=== PATIENT | female | born 1985 | race Caucasian/White ===

== ENCOUNTER → 2017-01-16 | Outpatient (CLI) | payer MEDICAID | LOC: MW.CHOBGYN 11:06 | PROVIDERS: ATTEND Advanced Practice Midwife | DX: Z34.90 Encounter for supervision of normal pregnancy, unspecified, unspecified trimester (principal) | CPT/HCPCS: 36415; 82950; 85027; 86850; 87491; 87591 ==

== ENCOUNTER → 2017-01-22 | Outpatient (CLI) | payer MEDICAID | LOC: MW.CHOBGYN 10:00 | PROVIDERS: ATTEND Advanced Practice Midwife | DX: O99.810 Abnormal glucose complicating pregnancy (principal) | CPT/HCPCS: 36415; 82951 ==

== ENCOUNTER 2017-03-12 18:49 | Inpatient (IN) | payer MEDICAID ==
[2017-03-12] MEDS ORDERED: Lidocaine 1% 50 ML MDV INJECT PRN (20:39)
[2017-03-12] MEDS ORDERED: Water For Irrigation,Sterile 1,000 ML Container IRR PRN (20:39)
[2017-03-12] MEDS ORDERED: Misoprostol 25 MCG (1/4 of 100 MCG) Tab PO PRN (20:39)
[2017-03-12] MEDS ORDERED: Methylergonovine 0.2 MG/1 ML Amp IM PRN (20:39)
[2017-03-12] MEDS ORDERED: Sodium Chloride 0.9% 2.5 ML Syringe FLUSH PRN (20:39)
[2017-03-12] MEDS ORDERED: Nalbuphine 10 MG/1 ML Vial IVPUSH PRN (20:39)
[2017-03-12] MEDS ORDERED: Carboprost Tromethamine 250 MCG/1 ML Amp IM PRN (20:39)
[2017-03-12] MEDS ORDERED: Sodium Chloride 0.9% 10 ML Syringe FLUSH PRN (20:39)
[2017-03-12] MEDS ORDERED: Misoprostol 200 MCG Tab PO PRN (20:39)
[2017-03-12] MEDS ORDERED: Terbutaline 1 MG/ML SDV SUBCUT PRN (20:39)
[2017-03-12] MEDS ORDERED: Oxytocin/Lactated Ringers 30 UNIT/500 ML BAG IV SCH ×2 (20:45)
[2017-03-12] MEDS ORDERED: Misoprostol 25 MCG (1/4 of 100 MCG) Tab PO SCH (20:45)
[2017-03-12] MEDS ORDERED: Misoprostol 25 MCG (1/4 of 100 MCG) Tab VAG SCH (20:45)
[2017-03-12] MEDS: Lactated Ringers 1,000 ML IV SCH (21:06)
[2017-03-13] MEDS: Misoprostol 25 MCG (1/4 of 100 MCG) Tab VAG PRN ×2 (01:00→06:09)
[2017-03-13] MEDS: Butorphanol 1 MG/ML SDV IVPUSH PRN ×3 (03:03→12:53)
[2017-03-13] MEDS: Lactated Ringers 1,000 ML IV SCH ×2 (12:06→16:57)
--- NOTE | 2017-03-13 12:15 | PCM.PREANE ---
Preanesthetic Assessment - Anesthesia/Transfusion/Family Hx Anesthesia History: No Prior Anesthesia Family History of Anesthesia Reaction: No Transfusion History: No Prior Transfusion(s) - Review of Systems General: No Symptoms Pulmonary: No Symptoms Cardiovascular: No Symptoms Gastrointestinal: No symptoms Neurological: No Symptoms Other: Reports: Diabetes (Gestational) - Physical Assessment NPO Status Date: 03/13/17 NPO Status Time: 15:48 (clear liquids) Height: 1.57 m Weight: 79.832 kg ASA Class: 3 Mental Status: Alert & Oriented x3 Airway Class: Mallampati = 3 Dentition: Reports: Normal Dentition Thyro-Mental Finger Breadths: 3 Mouth Opening Finger Breadths: 3 ROM/Head Extension: Full Lungs: Clear to auscultation, Normal respiratory effort Cardiovascular: Regular Rate, Regular Rhythm - Lab Values: Laboratory Last Values WBC 10.05 K/uL (4.0-11.0) 03/12/17 21:00 RBC 4.00 M/uL (4.30-5.90) L 03/12/17 21:00 Hgb 9.9 g/dL (12.0-16.0) L 03/12/17 21:00 Hct 31.7 % (36.0-46.0) L 03/12/17 21:00 MCV 79.3 fL (80.0-98.0) L 03/12/17 21:00 MCH 24.8 pg (27.0-32.0) L 03/12/17 21:00 MCHC 31.2 g/dL (31.0-37.0) 03/12/17 21:00 RDW Std Deviation 47.5 fl (28.0-62.0) 03/12/17 21:00 RDW Coeff of Mildred 16 % (11.0-15.0) H 03/12/17 21:00 Plt Count 283 K/uL (150-400) 03/12/17 21:00 MPV 11.80 fL (7.40-12.00) 03/12/17 21:00 Nucleated RBC % 0.0 /100WBC 03/12/17 21:00 Nucleated RBCs # 0 K/uL 03/12/17 21:00 POC Glucose 120 mg/dL (60-110) H 03/13/17 07:54 Blood Type O POSITIVE 03/12/17 21:00 Antibody Screen NEGATIVE 03/12/17 21:00 - Allergies Allergies/Adverse Reactions: Allergies Allergy/AdvReac Type Severity Reaction Status Date / Time No Known Allergies Allergy Verified 07/14/16 09:11 - Blood Blood Available: Yes Product(s) Available: PRBC - Acknowledgements Anesthesia Type Planned: Epidural Pt an Appropriate Candidate for the Planned Anesthesia: Yes Alternatives and Risks of Anesthesia Discussed w Pt/Guardian: Yes Pt/Guardian Understands and Agrees with Anesthesia Plan: Yes PreAnesthesia Questionnaire HEENT History: Reports: None Cardiovascular History: Reports: None Respiratory History: Reports: None Gastrointestinal History: Reports: GERD Genitourinary History: Reports: None SUBSTANCE ABUSE COUNSELOR History: Reports: Musculoskeletal History: Reports: None Neurological History: Reports: None Psychiatric History: Reports: None Endocrine/Metabolic History: Reports: Diabetes, Gestational Hematologic History: Reports: None Immunologic History: Reports: None Oncologic (Cancer) History: Reports: None Dermatologic History: Reports: None - Infectious Disease History Infectious Disease History: Reports: None - Past Surgical History Head Surgeries/Procedures: Reports: None HEENT Surgical History: Reports: Adenoidectomy, Tonsillectomy Other HEENT Surgeries/Procedures: Tonsillectomy and Adenoidectomy 05/23/16 Cardiovascular Surgical History: Reports: None Respiratory Surgical History: Reports: None GI Surgical History: Reports: None Female Surgical History: Reports: None Endocrine Surgical History: Reports: None Neurological Surgical History: Reports: None Musculoskeletal Surgical History: Reports: None Dermatological Surgical History: Reports: None - SUBSTANCE USE Smoking Status *Q: Never Smoker Second Hand Smoke Exposure: No Recreational Drug Use History: No - HOME MEDS Home Medications: Home Meds Cetirizine [ZyrTEC] 10 mg PO DAILY 07/14/16 [History] Excedrin Migraine 07/14/16 [History] Omeprazole 20 mg PO DAILY 07/14/16 [History] diphenhydrAMINE HCl [Benadryl] 25 mg PO 07/14/16 [History] - CURRENT (IN HOUSE) MEDS Current Meds: Current Medications Butorphanol Tartrate (Stadol) 1 mg IVPUSH ASDIRECTED PRN PRN Reason: Pain Last Admin: 03/13/17 06:12 Dose: 1 mg Carboprost Tromethamine (Hemabate Ds) 250 mcg IM ASDIRECTED PRN PRN Reason: Post Hemorrhage Lactated Ringer's (Ringers, Lactated) 1,000 mls @ 150 mls/hr IV ASDIRECTED ESTEFANIA Last Admin: 03/13/17 12:06 Dose: 150 mls/hr Oxytocin/Lactated Ringer's (Pitocin In Lr 30 Units/500 Ml) 30 unit in 500 mls @ 2 mls/hr IV TITRATE ESTEFANIA; 2 MUNITS/MIN PRN Reason: Protocol Lidocaine HCl (Xylocaine 1%) 50 ml INJECT .ONCE PRN PRN Reason: Laceration repair Methylergonovine Maleate (Methergine) 0.2 mg IM ASDIRECTED PRN PRN Reason: Post Hemorrhage Misoprostol (Cytotec) 25 mcg VAG .ONCE ESTEFANIA Last Admin: 03/12/17 21:12 Dose: 25 mcg Misoprostol (Cytotec) 25 mcg VAG Q4H PRN PRN Reason: Cervical Ripening Stop: 03/14/17 00:40 Last Admin: 03/13/17 06:09 Dose: 25 mcg Misoprostol (Cytotec) 200 mcg PO .ONCE PRN PRN Reason: Post Hemorrhage Misoprostol (Cytotec) 25 mcg PO .ONCE ESTEFANIA Last Admin: 03/12/17 21:12 Dose: 25 mcg Misoprostol (Cytotec) 25 mcg PO Q4H PRN PRN Reason: Cervical Ripening Stop: 03/14/17 00:40 Last Admin: 03/13/17 01:00 Dose: 25 mcg Nalbuphine HCl (Nubain) 10 mg IVPUSH ASDIRECTED PRN PRN Reason: Pain (severe 7-10) Stop: 03/14/17 20:40 Sodium Chloride (Saline Flush) 10 ml FLUSH ASDIRECTED PRN PRN Reason: Keep Vein Open Sodium Chloride (Saline Flush) 2.5 ml FLUSH ASDIRECTED PRN PRN Reason: Keep Vein Open Sterile Water (Sterile Water For Irrigation) 1,000 ml IRR ASDIRECTED PRN PRN Reason: delivery Terbutaline Sulfate (Brethine) 0.25 mg SUBCUT ASDIRECTED PRN PRN Reason: Tacysystole Discontinued Medications Oxytocin/Lactated Ringer's (Pitocin In Lr 30 Units/500 Ml) 30 unit in 500 mls @ 999 mls/hr IV ASDIRECTED ESTEFANIA PRN Reason: 999 MUNITS/MIN Stop: 03/12/17 21:16 - Free Text/Narrative Note: Labor Analgesia/Epidural Procedure start date: 03-13-17 time: 1500 Attending provider aware Chart reviewed Permit signed Labs reviewed VS/ FHR reviewed Pt identified/ID band Pt assessed Risks/Benefits discussed and accepted Monitors in place (BP, HR, SPO2) Patient, Site, Procedure Verification, Pause. Pain "10/10" Fluid bolus infused (fluid type and amount): 1000 ml LR Position: Sitting @ 1507 Prep: Betadine X 3 Sterile Drape Intradermal Wheal: 3 ml 1% Lidocaine Regional placement level: L4-5 Needle: 17 g Tuohy Approach: Midline Technique: KANDIS glass syringe w 3 ml Sterile water KANDIS needle depth: 6 cm Paresthesia: None Fluid Obtained: None Catheter insertion time: 1514 Catheter depth at skin: 20 cm Test Dose Time: 1515 RX: 3 ml 1.5% lidocaine with 1:200,000 epi Response: Negative Loading dose Time: 9080-5411 RX: 100 mcg fentanyl followed by 10 ml 0.2% ropivacaine in 2 ml increments over 11 minutes Pt position: semi fowlers with JACKIE Continuous infusion Start Time: 1535 RX: 100 ml 0.2% ropivacaine with 200 mcg fentanyl [2mcg/ml] Continuous infusion rate: 8 ml/hr REHAB CONSULTANT bolus option: 5 ml every 15 min Pt response Post procedure pain level: "0/10" VS and FHR monitored in unit post placement (See OB traceview for documentation. ) Procedure end date: 03/13/17 time: 1601
[2017-03-13] MEDS ORDERED: Oxytocin/Lactated Ringers 30 UNIT/500 ML BAG IV SCH (12:45)
[2017-03-13] MEDS: Sodium Chloride 0.9% 1,000 ML SCH ×2 (14:37→21:27)
[2017-03-13] MEDS ORDERED: fentaNYL 100 MCG/2 ML SDV ONE (14:56)
[2017-03-13] MEDS ORDERED: Ropivacaine 0.2% 2 MG/ML 20 ML SDV ONE (14:57)
[2017-03-13] MEDS ORDERED: Sodium Chloride 0.9% 500 ML SCH (17:15)
[2017-03-13] MEDS ORDERED: ceFAZolin 2 GM in Premix Bag 1 BAG IV ONE (23:43)
[2017-03-13] MEDS ORDERED: Acetaminophen 500 MG Tab PO ONE (23:46)
--- NOTE | 2017-03-14 01:10 | PCM.SN ---
- Free Text/Narrative Note: Called to replace epidural infusion bag. Pt states contractions are not painful but she is having increased pressure due to descent of fetus. Has used LEATHER STITCHER bolus button for back pain and it has been effective. 100 ml 0.2% ropivacaine with 2mcg/ml fentanyl replaced and rate continued as before at 8 ml/ hr with 5 ml every 15 min LEATHER STITCHER bolus available.
[2017-03-14] MEDS ORDERED: Ibuprofen 800 MG Tab PO PRN (04:58)
[2017-03-14] MEDS ORDERED: Docusate Sodium 100 MG Cap PO PRN (04:58)
[2017-03-14] MEDS ORDERED: Bisacodyl 10 MG Supp RECTAL PRN (04:58)
[2017-03-14] MEDS ORDERED: Benzocaine/Menthol 20%-0.5% Spray 78 GM Cannister TOP PRN (04:58)
[2017-03-14] MEDS ORDERED: oxyCODONE 5 MG Tab PO PRN (04:58)
[2017-03-14] MEDS ORDERED: Witch Hazel Medicated Pads 40/Jar TOP PRN (04:58)
[2017-03-14] MEDS ORDERED: Lanolin 100% Cream 7 GM Tube TOP PRN (04:58)
[2017-03-14] MEDS ORDERED: Acetaminophen 500 MG Tab PO PRN (04:58)
--- NOTE | 2017-03-14 06:40 | OR ---
SURGEON: Ginger Clark DATE OF PROCEDURE: 03/14/2017 PRE-DELIVERY HISTORY: This is a 31-year-old, G1, P0, who presented to Labor and Delivery on March 12 for induction of labor at 39 weeks and 5 days for A2 diabetes in . The patient was on glyburide during for diabetes. Blood sugars were well controlled. Otherwise, the patient has no other complications other than obesity. The patient was started on vaginal misoprostol after NST was significant for category 1 tracing and no regular contractions. The patient did receive a total of three doses of misoprostol, eventually broke her water, and was tatiana regularly. The patient was eventually started on IV Pitocin. The patient eventually did receive an epidural for analgesia during labor. On exam by physician, IUPC and scalp electrode were placed secondary to difficulty keeping with them otherwise. Secondary to heart rate tracing anywhere from category 1 to category 2, but mostly category 2 concerns of Nursing staff with occasional variable decelerations and early decelerations, Pitocin was turned off multiple times, and did not get above 8 milliunits per minute. The IUPC eventually became nonfunctional. The patient did receive a total of three amnio infusions for variable decelerations. Secondary to having taking a longer period of time to put the patient into active labor because Pitocin was turned off several times, the patient's rupture of membranes was noted to be prolonged. The patient was started on IV Ancef for GBS protocol at approximately 20 hours of rupture. The patient eventually felt tremendous rectal pressure. The patient was finally examined by Nursing staff and found to be completely dilated and in +3 station. The patient started maternal expulsive efforts. PREOPERATIVE DIAGNOSES: 1. Intrauterine at 40 weeks. 2. Group B Streptococcus negative. 3. Induction of labor for A2 diabetes mellitus. 4. Prolonged rupture of membranes. POSTOPERATIVE DIAGNOSES: 1. Intrauterine at 40 weeks. 2. Delivery. 3. Second-degree vaginal laceration. PROCEDURES PERFORMED: 1. Spontaneous-assisted vaginal delivery. 2. Repair of second-degree vaginal laceration. ANESTHESIA TYPE: Epidural and local. ESTIMATED BLOOD LOSS: Approximately 250 mL. FINDINGS: Viable male infant in vertex presentation with Apgars of 7 and 8 at one and five minutes respectively, and weight of 3120 g. Normal intact placenta with 3- vessel cord. Second-degree vaginal laceration. DISPOSITION: Mom and tolerated the procedure well. COMPLICATIONS: None known. DESCRIPTION OF PROCEDURE: This female under epidural anesthesia delivered a viable male infant with Apgars of 7 and 8 at one and five minutes respectively and weight of 3120 g. Delivery was via spontaneous vaginal delivery with infant in vertex presentation. Upon delivery of infant in vertex, the neck was checked. There was no nuchal to be reduced. With gentle downward traction, the anterior shoulder was delivered, followed by the body. The infant was bulb suctioned at delivery. Cord was doubly clamped and cut. The went over to the waiting baby nurse and supervisor core shop, Dr. Amaro. After delivery of the , IV Pitocin was given as an uterotonic to prevent excessive maternal blood loss and to help expel the placenta, therefore, actively managing the third stage of labor. With signs of placental separation, the fundal massage was given and traction on the umbilical cord. There was no further descent of the cord. So, a manual exam was completed, and it was noted that the uterus was contracted down around the placenta. The lower portion of the placenta was extruding through the cervical opening. The placenta was cleaved off the uterus slowly, but carefully the placenta was removed in one piece. The did appear intact on further inspection. After delivery of infant and placenta, the vagina, perineum, and rectum were explored. The patient had a second-degree vaginal laceration that was repaired with 3-0 Vicryl suture in the usual fashion. Of note, the laceration did extend out to the left labia majora and was reapproximated. After repair, the lower uterine segment of vagina was cleared of all clots and debris. The patient was cleansed, pads were changed, and the bed was returned to functioning status. The patient and tolerated the procedure well. COUNT RESULTS: Sponge, lap, needle, and instrument counts were correct. NEWTYOL / MODL /[id number] KATERINA
[2017-03-14] MEDS ORDERED: ceFAZolin 1 GM in Premix Bag 1 BAG IV SCH (08:00)
--- NOTE | 2017-03-14 11:08 | PCM48HPAN ---
Post Anesthesia Note - EVALUATION WITHIN 48HRS OF ANESTHETIC Vital Signs in Normal Range: Yes Patient Participated in Evaluation: Yes Respiratory Function Stable: Yes Airway Patent: Yes Cardiovascular Function Stable: Yes Hydration Status Stable: Yes Pain Control Satisfactory: Yes Nausea and Vomiting Control Satisfactory: Yes Mental Status Recovered: Yes
[2017-03-15 09:06] VITALS: BP 127/80
--- NOTE | 2017-03-15 11:02 | PCM.PNPP ---
- General Info Date of Service: 03/15/17 Functional Status: Reports: pain controlled, tolerating diet, ambulating, urinating - Review of Systems General: Denies: Fever, Weakness Pulmonary: Denies: shortness of breath Cardiovascular: Denies: Chest Pain, Palpitations, Lightheadedness Gastrointestinal: Denies: Abdominal pain, Nausea, Vomiting Genitourinary: Denies: flank pain Neurological: Reports: No Symptoms Psychiatric: Reports: no symptoms - General Info Date of Service: 03/15/17 - Patient Data Vital Signs - most recent: Last Vital Signs Temp 37.3 C 03/15/17 08:15 Pulse 95 03/15/17 08:15 Resp 20 03/15/17 08:15 BP 127/80 03/15/17 08:15 Pulse Ox 99 03/15/17 08:15 Weight - most recent: 79.832 kg Lab Results - last 24 hrs: Laboratory Results - last 24 hr 03/15/17 03/15/17 Range/Units 05:02 05:02 Hgb 8.5 L (12.0-16.0) g/dL Hct 27.1 L (36.0-46.0) % Fasting Glucose 86 (60-110) mg/dL Med Orders - Current: Current Medications Acetaminophen (Tylenol Extra Strength) 500 mg PO Q4H PRN PRN Reason: Pain Last Admin: 03/15/17 08:16 Dose: 500 mg Benzocaine/Menthol (Dermoplast Pain Relief 20%-0.5% [place]) 78 gm TOP ASDIRECTED PRN PRN Reason: Perineal Comfort Measure Bisacodyl (Dulcolax) 10 mg RECTAL .ONCE PRN PRN Reason: Constipation Butorphanol Tartrate (Stadol) 1 mg IVPUSH ASDIRECTED PRN PRN Reason: Pain Last Admin: 03/13/17 12:53 Dose: 1 mg Carboprost Tromethamine (Hemabate Ds) 250 mcg IM ASDIRECTED PRN PRN Reason: Post Hemorrhage Docusate Sodium (Colace) 100 mg PO BID PRN PRN Reason: Constipation Emollient Ointment (Lansinoh Hpa) 0 gm TOP ASDIRECTED PRN PRN Reason: Sore Nipples Lactated Ringer's (Ringers, Lactated) 1,000 mls @ 150 mls/hr IV ASDIRECTED ESTEFANIA Last Admin: 03/13/17 16:57 Dose: 150 mls/hr Oxytocin/Lactated Ringer's (Pitocin In Lr 30 Units/500 Ml) 30 unit in 500 mls @ 2 mls/hr IV TITRATE ESTEFANIA; 2 MUNITS/MIN PRN Reason: Protocol Last Titration: 03/13/17 20:57 Dose: 6 munits/min, 6 mls/hr Sodium Chloride (Normal Saline) 1,000 mls @ 999 mls/hr .XX ASDIRECTED [facility] Last Admin: 03/13/17 21:27 Dose: 500 mls/hr Sodium Chloride (Normal Saline) 500 mls @ 999 mls/hr .XX ASDIRECTED ESTEFANIA Cefazolin Sodium/Dextrose 1 gm (/ Premix) 50 mls @ 100 mls/hr IV Q8H ESTEFANIA Ibuprofen (Motrin) 800 mg PO Q6H PRN PRN Reason: Pain Lidocaine HCl (Xylocaine 1%) 50 ml INJECT .ONCE PRN PRN Reason: Laceration repair Last Admin: 03/14/17 04:32 Dose: 50 ml Methylergonovine Maleate (Methergine) 0.2 mg IM ASDIRECTED PRN PRN Reason: Post Hemorrhage Misoprostol (Cytotec) 25 mcg VAG .ONCE [facility] Last Admin: 03/12/17 21:12 Dose: 25 mcg Misoprostol (Cytotec) 200 mcg PO .ONCE PRN PRN Reason: Post Hemorrhage Misoprostol (Cytotec) 25 mcg PO .ONCE [facility] Last Admin: 03/12/17 21:12 Dose: 25 mcg Oxycodone HCl (Oxycodone) 5 mg PO Q2H PRN PRN Reason: Pain Sodium Chloride (Saline Flush) 10 ml FLUSH ASDIRECTED PRN PRN Reason: Keep Vein Open Sodium Chloride (Saline Flush) 2.5 ml FLUSH ASDIRECTED PRN PRN Reason: Keep Vein Open Sterile Water (Sterile Water For Irrigation) 1,000 ml IRR ASDIRECTED PRN PRN Reason: delivery Last Admin: 03/14/17 04:27 Dose: 1,000 ml Terbutaline Sulfate (Brethine) 0.25 mg SUBCUT ASDIRECTED PRN PRN Reason: Tacysystole Witch Denise (Tucks) 1 pad TOP ASDIRECTED PRN PRN Reason: comfort care Discontinued Medications Acetaminophen (Tylenol Extra Strength) 1,000 mg PO ONETIME ONE Stop: 03/13/17 23:47 Last Admin: 03/14/17 00:01 Dose: 1,000 mg Fentanyl (Sublimaze) Confirm Administered Dose 100 mcg .ROUTE .STK-MED ONE Stop: 03/13/17 14:57 Oxytocin/Lactated Ringer's (Pitocin In Lr 30 Units/500 Ml) 30 unit in 500 mls @ 2 mls/hr IV TITRATE ESTEFANIA; 2 MUNITS/MIN PRN Reason: Protocol Oxytocin/Lactated Ringer's (Pitocin In Lr 30 Units/500 Ml) 30 unit in 500 mls @ 999 mls/hr IV ASDIRECTED ESTEFANIA PRN Reason: 999 MUNITS/MIN Stop: 03/12/17 21:16 Ropivacaine/Fentanyl/NS (Fentanyl 2 Mcg-Ropiv 0.2%-Ns) Confirm Administered Dose 100 mls @ as directed .ROUTE .STK-MED ONE Stop: 03/13/17 14:58 Cefazolin Sodium/Dextrose 2 gm (/ Premix) 50 mls @ 100 mls/hr IV ONETIME ONE Stop: 03/14/17 00:12 Last Admin: 03/13/17 23:58 Dose: 100 mls/hr Ropivacaine/Fentanyl/NS (Fentanyl 2 Mcg-Ropiv 0.2%-Ns) Confirm Administered Dose 100 mls @ as directed .ROUTE .STK-MED ONE Stop: 03/14/17 00:50 Misoprostol (Cytotec) 25 mcg VAG Q4H PRN PRN Reason: Cervical Ripening Stop: 03/14/17 00:40 Last Admin: 03/13/17 06:09 Dose: 25 mcg Misoprostol (Cytotec) 25 mcg PO Q4H PRN PRN Reason: Cervical Ripening Stop: 03/14/17 00:40 Last Admin: 03/13/17 01:00 Dose: 25 mcg Nalbuphine HCl (Nubain) 10 mg IVPUSH ASDIRECTED PRN PRN Reason: Pain (severe 7-10) Stop: 03/14/17 20:40 Ropivacaine (Naropin 0.2%) Confirm Administered Dose 20 ml .ROUTE .STK-MED ONE Stop: 03/13/17 14:58 - Interaction Support Person: Significant Other - Recovery Exam Fundal Tone: Firm Fundal Level: 1 Fingerbreadths Above Umbilicus Fundal Placement: Midline Lochia Amount: Scant Lochia Color: Rubra/Red Bladder Status: Voiding Urinary Elimination: Voided - Exam General: alert, oriented Lungs: Normal respiratory effort Cardiovascular: Regular Rate, Regular Rhythm Abdomen: bowel sounds present, soft. No: CVA tenderness Extremities: no calf tenderness Skin: warm, dry, intact Psy/Mental Status: alert, normal affect - Problem List & Annotations (1) Vaginal delivery SNOMED Code(s): 042691592 Code(s): O80 - ENCOUNTER FOR FULL-TERM UNCOMPLICATED DELIVERY Status: Acute Current Visit: Yes - Problem List Review Problem List Initiated/Reviewed/Updated: Yes - My Orders Last 24 Hours: My Active Orders 03/15/17 11:00 Ready for Discharge [RC] PER UNIT ROUTINE - Assessment Assessment:: PPD 1 status post - Plan Plan:: Patient would like to go home today. Discharge instructions reviewed. Infection and bleeding warnings reviewed. Discharge to home, follow up 6weeks
== END 2017-03-15 13:40 | disposition home or self-care (01) | DRG 775 ==
LOC: MW.OBCHECK 18:49 → MW.OB 18:50 → MW.OBCHECK 20:40 → OBSVTOIN 03-14 04:17 → MW.OB 03-14 13:58
PROVIDERS: ADMIT Obstetrics & Gynecology; ATTEND Obstetrics & Gynecology
PROC: 10E0XZZ Delivery of Products of Conception, External Approach (ICD-10-PCS; principal; 2017-03-14)
PROC: 0KQM0ZZ Repair Perineum Muscle, Open Approach (ICD-10-PCS; 2017-03-14)
PROC: 3E0P7GC Introduction of Other Therapeutic Substance into Female Reproductive, Via Natural or Artificial Opening (ICD-10-PCS; 2017-03-14)
PROC: 10H07YZ Insertion of Other Device into Products of Conception, Via Natural or Artificial Opening (ICD-10-PCS; 2017-03-14)
PROC: 4A1H7CZ Monitoring of Products of Conception, Cardiac Rate, Via Natural or Artificial Opening (ICD-10-PCS; 2017-03-14)
DX: O24.425 Gestational diabetes mellitus in childbirth, controlled by oral hypoglycemic drugs (principal); O70.1 Second degree perineal laceration during delivery; O75.5 Delayed delivery after artificial rupture of membranes; Z3A.39 39 weeks gestation of pregnancy; Z37.0 Single live birth
CPT/HCPCS: 36415; 59025; 82947; 82962; 85014; 85018; 85027; 86850; 86900; 86901; A9270-GY; J0595; J0690; J2795; J3010; J7040; J7120

== ENCOUNTER 2019-07-05 15:04 | Emergency (ER) | payer BC, MEDICAID ==
[2019-07-05 15:19] VITALS: BP 121/68; PULSE 93
--- NOTE | 2019-07-05 15:42 | EDM.PDOC ---
ED HPI GENERAL MEDICAL PROBLEM - General Chief Complaint: Skin Complaint Stated Complaint: RASH LEFT SIDE, ACHES Time Seen by Provider: 07/05/19 15:32 Source of Information: Reports: Patient History Limitations: Reports: No Limitations - History of Present Illness INITIAL COMMENTS - FREE TEXT/NARRATIVE: HISTORY AND PHYSICAL: History of present illness: Patient is a 33-year-old female who presents to the ED today with concern of a painful and itchy rash on the right flank area 2 days. Patient states the rash started off with some blisters but has now spread pretty quickly. Patient states she has not taken anything for her symptoms. Patient denies any other symptoms or concerns at this time. Patient denies fever, chills, chest pain, shortness of breath, or cough. Denies headache, neck stiff ness, change in vision, syncope, or near syncope. Denies nausea, vomiting, abdominal pain, diarrhea, constipation, or dysuria. Has not noted any blood in urine or stool. Patient has been eating and drinking appropriately. Review of systems: As per history of present illness and below otherwise all systems reviewed and negative. Past medical history: As per history of present illness and as reviewed below otherwise noncontributory. Surgical history: As per history of present illness and as reviewed below otherwise noncontributory. Social history: See social history for further information Family history: As per history of present illness and as reviewed below otherwise noncontributory. Physical exam: General: Patient is alert, oriented, and in no acute distress. Patient sitting comfortably on exam table. HEENT: Atraumatic, normocephalic, pupils equal and reactive bilaterally, negative for conjunctival pallor or scleral icterus, mucous membranes moist, TMs normal bilaterally, throat clear, neck supple, nontender, trachea midline. No drooling or trismus noted. No meningeal signs. No hot potato voice noted. Lungs: Clear to auscultation, breath sounds equal bilaterally, chest nontender. Heart: S1S2, regular rate and rhythm without overt murmur Abdomen: Soft, nondistended, nontender. Negative for masses or hepatosplenomegaly. Negative for costovertebral tenderness. Pelvis: Stable nontender. Genitourinary: Deferred. Rectal: Deferred. Skin: There is a blister like stripe on the right side trunk of the body following the dermatome pattern. This rash does not cross the central body and only in a dermatome pattern. Extremities: Atraumatic, negative for cords or calf pain. Neurovascular unremarkable. Neuro: Awake, alert, oriented. Cranial nerves II through XII unremarkable. Cerebellum unremarkable. Motor and sensory unremarkable throughout. Exam nonfocal. Notes: Discussed the importance for follow-up with a primary care provider. Voices understanding and is agreeable to plan of care. Denies any further questions or concerns at this time. Diagnostics: None Therapeutics: None Prescription: Acyclovir, Medrol Dosepak (pain medication offered but patient declines) Impression: Shingles Plan: 1. Take medication as prescribed. You can alternate ibuprofen and Tylenol as directed for pain and discomfort. 2. Follow-up with her primary care provider as discussed. Return to the ED as needed and as discussed. Definitive disposition and diagnosis as appropriate pending reevaluation and review of above. right side Pain Score (Numeric/FACES): 8 - Related Data Allergies Allergy/AdvReac Type Severity Reaction Status Date / Time No Known Allergies Allergy Verified 07/05/19 15:15 Home Meds: Home Meds . 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: Musculoskeletal History: Reports: None Neurological History: Reports: None Psychiatric History: Reports: None Endocrine/Metabolic History: Reports: Diabetes, Gestational Hematologic History: Reports: None Immunologic History: Reports: None Oncologic (Cancer) History: Reports: None Dermatologic History: Reports: None - Infectious Disease History Infectious Disease History: Reports: None - Past Surgical History Head Surgeries/Procedures: Reports: None HEENT Surgical History: Reports: Adenoidectomy, Tonsillectomy Other HEENT Surgeries/Procedures: Tonsillectomy and Adenoidectomy 05/23/16 Cardiovascular Surgical History: Reports: None Respiratory Surgical History: Reports: None GI Surgical History: Reports: None Female Surgical History: Reports: None Endocrine Surgical History: Reports: None Neurological Surgical History: Reports: None Musculoskeletal Surgical History: Reports: None Dermatological Surgical History: Reports: None Social & Family History - Family History Family Medical History: Noncontributory - Tobacco Use Smoking Status *Q: Never Smoker - Caffeine Use Caffeine Use: Reports: Coffee - Recreational Drug Use Recreational Drug Use: No ED ROS GENERAL - Review of Systems Review Of Systems: ROS reveals no pertinent complaints other than HPI. ED EXAM, SKIN/RASH Exam: See Below (See dictation) Course - Vital Signs Last Recorded V/S: Last Vital Signs Temp 96.6 F 07/05/19 15:13 Pulse 93 07/05/19 15:13 Resp 18 07/05/19 15:13 BP 121/68 07/05/19 15:13 Pulse Ox 100 07/05/19 15:13 Departure - Departure Time of Disposition: 15:42 Disposition: Home, Self-Care 01 Clinical Impression: Shingles Qualifiers: Herpes zoster complications: without complications Qualified Code(s): B02.9 - Zoster without complications - Discharge Information Referrals: Gayle Bailey [employer] [Primary Care Provider] - Forms: ED Department Discharge Additional Instructions: The following information is given to patients seen in the emergency department who are being discharged to home. This information is to outline your options for follow-up care. We provide all patients seen in our emergency department with a follow-up referral. The need for follow-up, as well as the timing and circumstances, are variable depending upon the specifics of your emergency department visit. If you don't have a primary care physician on staff, we will provide you with a referral. We always advise you to contact your personal physician following an emergency department visit to inform them of the circumstance of the visit and for follow-up with them and/or the need for any referrals to a consulting specialist. The emergency department will also refer you to a specialist when appropriate. This referral assures that you have the opportunity for follow-up care with a specialist. All of these measure are taken in an effort to provide you with optimal care, which includes your follow-up. Under all circumstances we always encourage you to contact your private physician who remains a resource for coordinating your care. When calling for follow-up care, please make the office aware that this follow-up is from your recent emergency room visit. If for any reason you are refused follow-up, please contact the [facility] Emergency Department at and asked to speak to the emergency department charge nurse. [facility] [address] [place] [address] [facility] [address] [place] [id number] 1. Take medication as prescribed. You can alternate ibuprofen and Tylenol as directed for pain and discomfort. 2. Follow-up with her primary care provider as discussed. Return to the ED as needed and as discussed.
== END 2019-07-05 16:00 | disposition home or self-care (01) ==
LOC: MW.ED 15:04
DX: B02.9 Zoster without complications (principal)
CPT/HCPCS: 99282

== ENCOUNTER 2019-09-02 23:27 | Emergency (ER) | payer BC ==
--- NOTE | 2019-09-03 01:38 | EDM.PDOC ---
ED HPI GENERAL MEDICAL PROBLEM - General Chief Complaint: ENT Problem Stated Complaint: SORE THROAT Time Seen by Provider: 09/02/19 23:49 Source of Information: Reports: Patient History Limitations: Reports: No Limitations - History of Present Illness INITIAL COMMENTS - FREE TEXT/NARRATIVE: 34-year-old female who presents the emergency room chief complaint of sore throat and possible exudates on her tonsils. Patient states this is been going on for the past 4 days. Onset: Today, Gradual Duration: Day(s):, Getting Worse Severity: Mild Improves with: Reports: None Worsens with: Reports: None Associated Symptoms: Reports: No Other Symptoms throat Pain Score (Numeric/FACES): 5 - Related Data Allergies Allergy/AdvReac Type Severity Reaction Status Date / Time No Known Allergies Allergy Verified 09/02/19 23:52 Home Meds: Home Meds . 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: Musculoskeletal History: Reports: None Neurological History: Reports: None Psychiatric History: Reports: None Endocrine/Metabolic History: Reports: Diabetes, Gestational Hematologic History: Reports: None Immunologic History: Reports: None Oncologic (Cancer) History: Reports: None Dermatologic History: Reports: None - Infectious Disease History Infectious Disease History: Reports: None - Past Surgical History Head Surgeries/Procedures: Reports: None HEENT Surgical History: Reports: Adenoidectomy, Tonsillectomy Other HEENT Surgeries/Procedures: Tonsillectomy and Adenoidectomy 05/23/16 Cardiovascular Surgical History: Reports: None Respiratory Surgical History: Reports: None GI Surgical History: Reports: None Female Surgical History: Reports: None Endocrine Surgical History: Reports: None Neurological Surgical History: Reports: None Musculoskeletal Surgical History: Reports: None Dermatological Surgical History: Reports: None Social & Family History - Family History Family Medical History: Noncontributory - Tobacco Use Smoking Status *Q: Never Smoker - Caffeine Use Caffeine Use: Reports: Coffee - Recreational Drug Use Recreational Drug Use: No ED ROS ENT - Review of Systems Review Of Systems: See Below Constitutional: Reports: No Symptoms HEENT: Reports: Throat Pain Respiratory: Reports: No Symptoms Cardiovascular: Reports: No Symptoms Endocrine: Reports: No Symptoms GI/Abdominal: Reports: No Symptoms : Reports: No Symptoms Musculoskeletal: Reports: No Symptoms Skin: Reports: No Symptoms Neurological: Reports: No Symptoms Psychiatric: Reports: No Symptoms Hematologic/Lymphatic: Reports: No Symptoms Immunologic: Reports: No Symptoms ED EXAM, ENT - Physical Exam Exam: See Below Text/Narrative:: -34year-old female presents to the emergency room with sore throat. Exudates on his tonsils. Exam Limited By: No Limitations General Appearance: Alert, WD/WN, No Apparent Distress Eye Exam: Bilateral Eye: Abnormal EOM, Abnormal Pupil, Normal Fundi, Normal Inspection Ears: Normal External Exam, Normal Canal, Normal TMs Nose: Normal Inspection, Normal Mucousa Mouth/Throat: Normal Inspection, Normal Gums, Normal Oropharynx, Normal Teeth, Throat Pain Head: Atraumatic, Normocephalic Neck: Normal Inspection, Supple, Non-Tender Respiratory/Chest: No Respiratory Distress, Lungs Clear, Normal Breath Sounds, No Accessory Muscle Use Cardiovascular: Normal Peripheral Pulses, Regular Rate, Rhythm, No Edema, No JVD , No Murmur GI/Abdominal: Normal Bowel Sounds, Soft, Non-Tender (Female) Exam: Deferred Rectal (Female) Exam: Deferred Back: Normal Inspection, Full Range of Motion Neurological: Alert, Oriented, CN II-XII Intact Psychiatric: Normal Affect, Normal Mood Skin: Warm, Dry, Intact, Normal Color Course - Vital Signs Last Recorded V/S: Last Vital Signs Temp 98.1 F 09/02/19 23:40 Pulse 90 09/02/19 23:40 Resp 18 09/02/19 23:40 BP 117/74 09/02/19 23:40 Pulse Ox 97 09/02/19 23:40 - Orders/Labs/Meds Orders: Active Orders 24 hr Category Date Time Status CULTURE STREP A CONFIRMATION [RM] Stat Lab 09/03/19 00:21 Results STREP SCRN A RAPID W CULT CONF [RM] Stat Lab 09/03/19 00:21 Results Labs: Laboratory Tests 09/03/19 Range/Units 01:03 Monoscreen NEGATIVE (NEG) Departure - Departure Time of Disposition: 01:38 Disposition: Home, Self-Care 01 Condition: Good Clinical Impression: Viral syndrome - Discharge Information Instructions: Viral Illness, Adult Referrals: Gayle Bailey [employer] 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
[2019-09-03 02:16] VITALS: BP 125/88; PULSE 96
== END 2019-09-03 01:55 | disposition home or self-care (01) ==
LOC: MW.ED 23:27
DX: B34.9 Viral infection, unspecified (principal)
CPT/HCPCS: 36415; 86308; 87081; 87804; 87880-QW; 99283

== ENCOUNTER 2020-05-27 17:00 | Emergency (ER) | payer BC, OTHER ==
--- NOTE | 2020-05-27 17:31 | EDM.PDOCBH ---
ED HPI GENERAL MEDICAL PROBLEM - General Chief Complaint: Behavioral/Psych Stated Complaint: MENTAL HEALTH Time Seen by Provider: 05/27/20 17:20 Source of Information: Reports: Patient, EMS History Limitations: Reports: No Limitations - History of Present Illness INITIAL COMMENTS - FREE TEXT/NARRATIVE: HISTORY AND PHYSICAL: History of present illness: Patient is a 34-year-old female who presents to the emergency room with complaints of suicidal ideation. She states last evening she was thinking about taking her prescription medications "all at once" and mixing them with alcohol. She states her son was with her and decided against taking the meds/ETOH. She has been having this idea "bounce back and forth" between following through and "living for my son". She called a counselor whom she confided in, they encouraged her to come to the emergency room for further evaluation. Upon arrival the patient states she continues to have thoughts of harming herself and would like psychiatric help. No previous history of admission for the Mai ideation/bipolar depression. States she is not taking any excess prescription medications, [id number] medications, street drugs or alcohol. Review of systems: As per history of present illness and below otherwise all systems reviewed and negative. Past medical history: As per history of present illness and as reviewed below otherwise noncontributory. Surgical history: As per history of present illness and as reviewed below otherwise noncontributory. Social history: See social history for further information Family history: As per history of present illness and as reviewed below otherwise noncontributory. Physical exam: General: Well developed and well nourished 34 year old female. Alert and orientated x 3. Flat affect, avoids eye contact, nontoxic in appearance and in no acute distress. Vital signs are stable and have been reviewed by me. Nursing notes were reviewed. HEENT: Atraumatic, normocephalic, pupils equal and reactive bilaterally, negative for conjunctival pallor or scleral icterus, mucous membranes moist, trachea midline. No drooling or trismus noted. No meningeal signs. No hot potato voice noted. Lungs: Clear to auscultation, breath sounds equal bilaterally. Normal work of breathing, no accessory muscles used. Heart: S1S2, regular rate and rhythm without overt murmur Abdomen: Soft, nondistended, nontender. Negative for masses or hepatosplenomegaly. Negative for costovertebral tenderness. Skin: Intact, warm, dry. No lesions or rashes noted. Hematologic: No petechiae or purpra. Mucosa appropriate color and normal nail bed color and refill. Extremities: Atraumatic, moves all extremities per self without difficulty or deficits. Neurovascular unremarkable. Neuro: Awake, alert, oriented. Cranial nerves II through XII unremarkable. Cerebellum unremarkable. Motor and sensory unremarkable throughout. Exam nonfocal. Notes: An 'Emergency Hold' will be placed due to the patient's statements. Staff member with patient 1:1. Patient was made aware of HOLD and is agreeable to plan of care. Lab work is unremarkable. VSS. Patient remains calm and cooperative. COVID results pending (asymptomatic). 1814:[facility] has no beds available. 1819: [facility] does not have beds available. 1822: [facility], Dr. Archer, psychiatrist on-call, was made aware of this patient. Reviewed the patient with the provider and they are agreeable to accepting this patient for further care and management. Patient was made aware of transfer and is agreeable to plan of care. No change in patient status. Diagnostics: CBC, CMP, TSH, EKG, COVID, Drug Screen Acetaminophen, Salicylate, UA, HCGU Therapeutics: None Prescription: None Impression: Suicidal Ideation Plan: Transfer to [facility] via S Definitive disposition and diagnosis as appropriate pending reevaluation and review of above. 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 HEAD History: Reports: Musculoskeletal History: Reports: None Neurological History: Reports: None Psychiatric History: Reports: None Endocrine/Metabolic History: Reports: Diabetes, Gestational Hematologic History: Reports: None Immunologic History: Reports: None Oncologic (Cancer) History: Reports: None Dermatologic History: Reports: None - Infectious Disease History Infectious Disease History: Reports: None - Past Surgical History Head Surgeries/Procedures: Reports: None HEENT Surgical History: Reports: Adenoidectomy, Tonsillectomy Other HEENT Surgeries/Procedures: Tonsillectomy and Adenoidectomy 05/23/16 Cardiovascular Surgical History: Reports: None Respiratory Surgical History: Reports: None GI Surgical History: Reports: None Female Surgical History: Reports: None Endocrine Surgical History: Reports: None Neurological Surgical History: Reports: None Musculoskeletal Surgical History: Reports: None Dermatological Surgical History: Reports: None Social & Family History - Family History Family Medical History: Noncontributory - Caffeine Use Caffeine Use: Reports: Coffee ED ROS GENERAL - Review of Systems Review Of Systems: Comprehensive ROS is negative, except as noted in HPI. ED EXAM, BEHAVIORAL HEALTH - Physical Exam Exam: See Below (See dictation) COURSE, BEHAVIORAL HEALTH COMP - Course Vital Signs: Last Vital Signs Temp 98.0 F 05/27/20 17:13 Pulse 95 05/27/20 18:47 Resp 17 05/27/20 17:13 BP 129/73 05/27/20 18:47 Pulse Ox 99 05/27/20 18:03 Orders, Labs, Meds: Active Orders 24 hr Category Date Time Status EKG 12 Lead [EKG Documentation Completion] [RC] STAT Care 05/27/20 17:20 Active CORONAVIRUS COVID-19 PCR PHL Stat Lab 05/27/20 18:27 Received Laboratory Tests 05/27/20 05/27/20 05/27/20 Range/Units 17:25 17:25 17:25 WBC (4.0-11.0) K/uL RBC (4.30-5.90) M/uL Hgb (12.0-16.0) g/dL Hct (36.0-46.0) % MCV (80.0-98.0) fL MCH (27.0-32.0) pg MCHC (31.0-37.0) g/dL RDW Std Deviation (28.0-62.0) fl RDW Coeff of Mildred (11.0-15.0) % Plt Count (150-400) K/uL MPV (7.40-12.00) fL Neut % (Auto) (48.0-80.0) % Lymph % (Auto) (16.0-40.0) % [place] % (Auto) (0.0-15.0) % Eos % (Auto) (0.0-7.0) % Baso % (Auto) (0.0-1.5) % Neut # (Auto) (1.4-5.7) K/uL Lymph # (Auto) (0.6-2.4) K/uL [place] # (Auto) (0.0-0.8) K/uL Eos # (Auto) (0.0-0.7) K/uL Baso # (Auto) (0.0-0.1) K/uL Nucleated RBC % /100WBC Nucleated RBCs # K/uL Sodium (136-145) mmol/L Potassium (3.5-5.1) mmol/L Chloride (98-107) mmol/L Carbon Dioxide (21.0-32.0) mmol/L BUN (7.0-18.0) mg/dL Creatinine (0.6-1.0) mg/dL Est Cr Clr Drug Dosing mL/min Estimated GFR (MDRD) ml/min Glucose (74-106) mg/dL Calcium (8.5-10.1) mg/dL Total Bilirubin (0.2-1.0) mg/dL AST (15-37) IU/L ALT (14-63) IU/L Alkaline Phosphatase (46-116) U/L Total Protein (6.4-8.2) g/dL Albumin (3.4-5.0) g/dL Globulin (2.6-4.0) g/dL Albumin/Globulin Ratio (0.9-1.6) TSH 3rd Generation (0.36-3.74) uIU/mL Urine Color YELLOW Urine Appearance CLEAR Urine pH 6.0 (5.0-8.0) Ur Specific [place] >= 1.030 (1.001-1.035) Urine Protein TRACE H (NEGATIVE) mg/dL Urine Glucose (UA) NEGATIVE (NEGATIVE) mg/dL Urine Ketones TRACE H (NEGATIVE) mg/dL Urine Occult Blood NEGATIVE (NEGATIVE) Urine Nitrite NEGATIVE (NEGATIVE) Urine Bilirubin NEGATIVE (NEGATIVE) Urine Urobilinogen 0.2 (<2.0) EU/dL Ur Leukocyte Esterase NEGATIVE (NEGATIVE) Urine RBC 0-1 (0-2/HPF) Urine WBC 0-1 (0-5/HPF) Ur Epithelial Cells FEW (NONE-FEW) Urine Bacteria RARE (NEGATIVE) Urine HCG, Qual NEGATIVE (NEGATIVE) Salicylates (0-20) mg/dL Urine Opiates Screen NEGATIVE (NEGATIVE) Ur Oxycodone Screen NEGATIVE (NEGATIVE) Urine Methadone Screen NEGATIVE (NEGATIVE) Acetaminophen ug/mL Ur Barbiturates Screen NEGATIVE (NEGATIVE) Ur Phencyclidine Scrn NEGATIVE (NEGATIVE) Ur Amphetamine Screen NEGATIVE (NEGATIVE) U Methamphetamines Scrn NEGATIVE (NEGATIVE) U Benzodiazepines Scrn NEGATIVE (NEGATIVE) U Cocaine Metab Screen NEGATIVE (NEGATIVE) U Marijuana (THC) Screen NEGATIVE (NEGATIVE) Ethyl Alcohol mg/dL SARS CoV-2 RNA Rapid YENNI (NEGATIVE) 05/27/20 05/27/20 05/27/20 Range/Units 17:34 17:34 18:27 WBC 7.79 (4.0-11.0) K/uL RBC 4.47 (4.30-5.90) M/uL Hgb 12.8 (12.0-16.0) g/dL Hct 38.4 (36.0-46.0) % MCV 85.9 (80.0-98.0) fL MCH 28.6 (27.0-32.0) pg MCHC 33.3 (31.0-37.0) g/dL RDW Std Deviation 42.0 (28.0-62.0) fl RDW Coeff of Mildred 13 (11.0-15.0) % Plt Count 303 (150-400) K/uL MPV 10.20 (7.40-12.00) fL Neut % (Auto) 70.8 (48.0-80.0) % Lymph % (Auto) 20.9 (16.0-40.0) % [place] % (Auto) 6.9 (0.0-15.0) % Eos % (Auto) 1.0 (0.0-7.0) % Baso % (Auto) 0.4 (0.0-1.5) % Neut # (Auto) 5.5 (1.4-5.7) K/uL Lymph # (Auto) 1.6 (0.6-2.4) K/uL [place] # (Auto) 0.5 (0.0-0.8) K/uL Eos # (Auto) 0.1 (0.0-0.7) K/uL Baso # (Auto) 0.0 (0.0-0.1) K/uL Nucleated RBC % 0.0 /100WBC Nucleated RBCs # 0 K/uL Sodium 142 (136-145) mmol/L Potassium 3.4 L (3.5-5.1) mmol/L Chloride 103 (98-107) mmol/L Carbon Dioxide 21.3 (21.0-32.0) mmol/L BUN 19 H (7.0-18.0) mg/dL Creatinine 0.9 (0.6-1.0) mg/dL Est Cr Clr Drug Dosing 82.45 mL/min Estimated GFR (MDRD) > 60.0 ml/min Glucose 100 (74-106) mg/dL Calcium 9.3 (8.5-10.1) mg/dL Total Bilirubin 0.2 (0.2-1.0) mg/dL AST 21 (15-37) IU/L ALT 31 (14-63) IU/L Alkaline Phosphatase 67 (46-116) U/L Total Protein 7.7 (6.4-8.2) g/dL Albumin 3.8 (3.4-5.0) g/dL Globulin 3.9 (2.6-4.0) g/dL Albumin/Globulin Ratio 1.0 (0.9-1.6) TSH 3rd Generation 2.54 (0.36-3.74) uIU/mL Urine Color Urine Appearance Urine pH (5.0-8.0) Ur Specific [place] (1.001-1.035) Urine Protein (NEGATIVE) mg/dL Urine Glucose (UA) (NEGATIVE) mg/dL Urine Ketones (NEGATIVE) mg/dL Urine Occult Blood (NEGATIVE) Urine Nitrite (NEGATIVE) Urine Bilirubin (NEGATIVE) Urine Urobilinogen (<2.0) EU/dL Ur Leukocyte Esterase (NEGATIVE) Urine RBC (0-2/HPF) Urine WBC (0-5/HPF) Ur Epithelial Cells (NONE-FEW) Urine Bacteria (NEGATIVE) Urine HCG, Qual (NEGATIVE) Salicylates 1.1 (0-20) mg/dL Urine Opiates Screen (NEGATIVE) Ur Oxycodone Screen (NEGATIVE) Urine Methadone Screen (NEGATIVE) Acetaminophen <2.0 ug/mL Ur Barbiturates Screen (NEGATIVE) Ur Phencyclidine Scrn (NEGATIVE) Ur Amphetamine Screen (NEGATIVE) U Methamphetamines Scrn (NEGATIVE) U Benzodiazepines Scrn (NEGATIVE) U Cocaine Metab Screen (NEGATIVE) U Marijuana (THC) Screen (NEGATIVE) Ethyl Alcohol < 3.0 mg/dL SARS CoV-2 RNA Rapid YENNI NEGATIVE (NEGATIVE) Departure - Departure Time of Disposition: 18:57 Disposition: DC/Tfer to Psych Hosp/Unit [facility] Clinical Impression: Suicidal ideation - Discharge Information Referrals: Gayle Bailey NP [Primary Care Provider] - Sepsis Event Note (ED) - Focused Exam Vital Signs: Vital Signs Temp Pulse Resp BP Pulse Ox 05/27/20 18:47 95 129/73 05/27/20 18:03 91 138/92 H 99 05/27/20 17:13 98.0 F 105 H 17 134/80 98 - My Orders Last 24 Hours: My Active Orders 05/27/20 17:20 EKG 12 Lead [EKG Documentation Completion] [RC] STAT 05/27/20 18:27 CORONAVIRUS COVID-19 PCR PHL Stat - Assessment/Plan Last 24 Hours: My Active Orders 05/27/20 17:20 EKG 12 Lead [EKG Documentation Completion] [RC] STAT 05/27/20 18:27 CORONAVIRUS COVID-19 PCR PHL Stat
[2020-05-27 18:15] LABS: ACETAMINOPHEN <2.0 ug/mL; BLOOD UREA NITROGEN,BUN 19 mg/dL (7.0-18.0); CARBON DIOXIDE,CO2 21.3 mmol/L (21.0-32.0); CHLORIDE,CL 103 mmol/L (98-107); GLUCOSE RANDOM 100 mg/dL (74-106); POTASSIUM,K 3.4 mmol/L (3.5-5.1); SODIUM,NA 142 mmol/L (136-145)
[2020-05-27 18:48] VITALS: BP 129/73; PULSE 95
== END 2020-05-27 20:00 ==
LOC: MW.ED 17:00
DX: R45.851 Suicidal ideations (principal); Z79.899 Other long term (current) drug therapy; Z20.828 Contact with and (suspected) exposure to other viral communicable diseases
CPT/HCPCS: 36415; 80053; 80305-QW; 80307; 81001; 81025; 84443; 85025; 93005; 99284; 99285-25; U0002

== ENCOUNTER 2021-10-29 13:54 | Emergency (ER) | payer BC ==
[2021-10-29 15:42] VITALS: BP 126/80; PULSE 100
== END 2021-10-29 15:45 | disposition home or self-care (01) ==
LOC: MW.ED 13:54
DX: S92.192A Other fracture of left talus, initial encounter for closed fracture (principal); X50.1XXA Overexertion from prolonged static or awkward postures, initial encounter; Y93.44 Activity, trampolining
CPT/HCPCS: 73610-26-LT; 73610-LT; 73620-26-LT; 73620-LT; 99283